=== PATIENT | male | born 1960 ===

== ENCOUNTER 2025-06-09 15:29 | Emergency (ER) | payer MEDICARE, MEDICAID ==
[2025-06-09 16:42] LABS: BASOPHILS ABSOLUTE AUTO 0.02 10^3/uL (0.00-0.50); BASOPHILS PERCENT AUTO 0.2 % (0-1); EOSINOPHILS ABSOLUTE AUTO 0.04 10^3/uL (0.00-1.50); EOSINOPHILS PERCENT AUTO 0.3 % (0-6); IMMATURE GRAN ABSOLUTE AUTO 0.02 10^3/uL (0.00-0.49); IMMATURE GRAN PERCENT AUTO 0.2 % (0.0-4.9); LYMPHOCYTES ABSOLUTE AUTO 0.83 10^3/uL (0.60-5.00); LYMPHOCYTES PERCENT AUTO 6.9 % (24-44); MONOCYTES ABSOLUTE AUTO 0.75 10^3/uL (0.00-1.50); MONOCYTES PERCENT AUTO 6.2 % (0-10); NEUTROPHILS ABSOLUTE AUTO 10.37 x10^3/uL (1.80-8.00); NEUTROPHILS PERCENT AUTO 86.2 % (41-71); PLATELET COUNT,PLT 139 10^3/uL (150-400); RED BLOOD CELL COUNT 4.59 x10^6/uL (4.50-6.00); WHITE BLOOD CELL COUNT,WBC 12.0 10^3/uL (4.0-11.0)
[2025-06-09 16:53] LABS: ALANINE AMINOTRANSFERASE,ALT 19 U/L (12-78); ASPARTATE AMNIOTRANSFERASE,AST 23 U/L (15-37); BILIRUBIN TOTAL 0.3 mg/dL (0.0-1.0); BLOOD UREA NITROGEN,BUN 25 mg/dL (7-18); CHLORIDE,CL 95 mEq/L (98-106); CREATININE 0.5 mg/dL (0.7-1.3); GLUCOSE RANDOM 111 mg/dL (75-99); POTASSIUM,K 4.8 mEq/L (3.5-5.0); PROTEIN TOTAL,TP 6.6 g/dL (6.4-8.2); SODIUM,NA 141 mEq/L (136-145)
[2025-06-09 16:55] LABS: CARBON DIOXIDE,CO2 44 mmol/L (21-32); ESTIMATED GFR 115 mL/min (>=60)
[2025-06-09] MEDS: LORazepam 2 MG/ML SDV IVPUSH ONE (17:10)
[2025-06-09] MEDS: methylPREDNISolone Sodium Succinate 125 MG/2 ML SDV IVPUSH STA (17:27)
[2025-06-09] MEDS ORDERED: Promethazine 25 MG in Sodium Chloride 0.9% 100 ML IV ONE (18:51)
== END 2025-06-09 19:30 ==
LOC: CC.ED 15:29
DX: J93.83 Other pneumothorax (principal); F17.200 Nicotine dependence, unspecified, uncomplicated
CPT/HCPCS: 32551; 36415; 71045; 71046; 80053; 83735; 85025; 86140; 87426-QW; 93005; 94640; 96374; 96375; 96376; 99285-25; A9270-GY; J1171; J2060; J2919